=== PATIENT | female | born 1945 | race Caucasian/White ===

== ENCOUNTER 2021-04-08 12:34 | Outpatient (CLI) | payer MEDICARE, OTHER, SELFPAY ==
--- NOTE | 2021-04-08 | XR_ITS ---
WS: [id number] DEXA (DUAL ENERGY X-RAY ABSORPTIOMETRY) Bone mineral density was performed using a [employer] machine. HISTORY: ROUTINE POSTMENOPAUSAL SCREEN COMPARISON: 02/10/2019 Lumbar spine BMD (L1-L4): 1.322 g/cm2 T score: 1.2 Z score: 1.8 Total hip BMD: Left: 1.014 g/cm2. T score: 0.1 Z score: 1.1 Right: 0.943 g/cm2. T score: -0.5 Z score: 0.5 10 year probability of a major osteoporotic fracture is 16%. Compared to the prior study from 02/10/2019. Lumbar spine bone mineral density has increased by 0.2%. Bilateral hips bone mineral density has decreased by 2.4%. XR/XR DEXA axial skeleton* [id number] IMPRESSION: Normal bone mineral density based upon the WHO classification for females. Sign ificant decrease in bone mineral density within the hips since the prior study.
--- NOTE | 2021-04-08 13:01 | MM_ITS ---
WS: [id number] BILATERAL DIGITAL SCREENING MAMMOGRAPHY WITH CAD CLINICAL INFORMATION: SCREENING HISTORY: Screening mammogram. No current complaints. COMPARISON: TECHNIQUE: Bilateral CC and MLO views. FINDINGS: Scattered fibroglandular densities bilaterally. Punctate and lucent centered calcifications. No suspi cious focal mass, asymmetry, calcifications, or architectural distortion. No evidence of malignancy. MM/[place] [id number] IMPRESSION: BI-RADS: 2-Benign FOLLOW UP: 1 Year Follow-up Recommend return to annual screening mammography.
== END 2021-04-08 12:35 | disposition home or self-care (01) ==
LOC: RADSHAW 12:40
PROVIDERS: PCP Family Medicine; Visit Provider Family Medicine
DX: Z12.31 Encounter for screening mammogram for malignant neoplasm of breast (principal); Z78.0 Asymptomatic menopausal state
CPT/HCPCS: 77067; 77080

== ENCOUNTER 2021-08-28 08:57 | Observation (INO) | payer MEDICARE, OTHER, SELFPAY ==
[2021-08-28] VITALS (9 sets, daily range): BP systolic 114–187; BP diastolic 64–117; PULSE 71–89; RESP 14–22; TEMP 36.7; O2SAT 94–98; BMI 43.2; BMI 41.5
--- NOTE | 2021-08-28 09:14 | XRR_ITS ---
PROCEDURE INFORMATION: Exam: XR Chest Exam date and time: 08/28/2021 9:14 AM Age: 75 years old Clinical indication: Pain; Chest pressure; Additional info: Chest pain TECHNIQUE: Imaging protocol: XR of the chest. Views: 1 view. COMPARISON: CR Chest 2 views* [id number] 07/05/2017 10:56 AM FINDINGS: Lungs: Unremarkable. No consolidation. Pleural spaces: Unremarkable. No pleural effusion. No pneumothorax. Heart/Mediastinum: Unremarkable. No cardiomegaly. Bones/joints: A suture anchor is present in the right humeral head. Degenerative changes are present in both shoulder joints. XR/XR chest 1V portable [id number] IMPRESSION: No significant cardiopulmonary abnormality. Radiation Dose CTDIVOL = (mGy): DLP = (mGy-cm)
--- NOTE | 2021-08-28 09:15 | ECG_ITS ---
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 Measurements Intervals [place] Rate: 87 P: 52 [place]: 159 QRS: -24 QRSD: 82 T: 60 QT: 343 QTc: 414 Interpretive Statements SINUS RHYTHM BORDERLINE LEFT AXIS DEVIATION [QRS AXIS < -20] ST DEVIATION AND MODERATE T-WAVE ABNORMALITY, CONSIDER ANTERIOR ISCHEMIA [-0.1+ mV T-WAVE IN V3/V4] Compared to ECG 11/13/2016 13:20:23 No significant changes Electronically Signed On 08-28-2021 18:14:31 CDT by Zita Rahman M.D. [email or web address].[email or web address]/store/NU/[id number] f
[2021-08-28 09:54] LABS: Basophils # 0.1 10^3/uL (0.0-0.1); Basophils % 1.1 %; Eosinophils # 0.2 10^3/uL (0.0-0.8); Eosinophils % 4.2 %; Hematocrit 39.6 % (37.0-47.0); Hemoglobin 12.6 g/dL (11.5-15.3); Lymphocytes # 1.4 10^3/uL (0.8-4.8); Lymphocytes % 28.4 %; Mean Corpuscular HGB Conc 31.8 g/dL (30.0-36.0); Mean Corpuscular Hemoglobin 30.9 pg (28.0-34.0); Mean Corpuscular Volume 97.1 fl (81-99); Mean Platelet Volume 10.6 fL (7.4-10.4); Monocytes # 0.5 10^3/uL (0.2-0.9); Monocytes % 10.5 %; Neutrophils # 2.63 10^3/uL (1.8-7.7); Neutrophils % 55.2 %; Nucleated Red Blood Cells % 0 %; Platelet Count 259 10^3/cmm (130-400); Red Blood Count 4.08 10^6/uL (4.1-5.3); Red Cell Distribution Width 12.4 % (12.1-15.1); White Blood Count 4.8 10^3/uL (4.0-10.0)
[2021-08-28 09:55] LABS: Add Urine Microscopic? NO; Charge for UA Resulting for Rev
[2021-08-28 10:03] LABS: Bilirubin Urine Neg (Negative); Blood Urine Neg (Negative); Glucose Urine UA Norm (Normal); Ketones Urine Negative (Negative); Leukocyte Esterase Urine Negative (Negative); Nitrate Urine Negative (Negative); Protein Urine Neg (Negative); Specific Gravity, Urine 1.005 (1.005-1.030); Sulfosalicylic Acid Urine Negative (Negative); Urine Appearance Clear (CLEAR); Urine Color Straw (Yellow); Urobilinogen Urine Norm (Negative); pH Urine 8 (5-7)
[2021-08-28 10:07] LABS: INR 0.91 (0.8-1.2)
[2021-08-28 10:21] LABS: Troponin(5th) Baseline 11 ng/L (0-10)
[2021-08-28 10:26] LABS: Alanine Aminotransferase 8 U/L (0-33); Albumin Level 3.9 g/dL (3.5-5.2); Alkaline Phosphatase 101 IU/L (35-105); Aspartate Amino Transferase 16 U/L (0-32); Blood Urea Nitrogen 8 mg/dL (8-23); Calcium 9.3 mg/dL (8.5-10.5); Carbon Dioxide 26 mmol/L (22-29); Chloride 105 mmol/L (98-107); Globulin 2.7 g/dL (1.3-4.6); Glucose 101 mg/dL (65-115); Magnesium 1.7 mg/dL (1.7-2.3); NT Pro B Type Natriuretic Pept 32 pg/mL (0-450); Osmolality Calculated 292 mOsm/kg (285-295); Sodium 142 mmol/L (136-145); Total Bilirubin 0.3 mg/dL (0.15-1.2); Total Protein 6.6 g/dL (6.6-8.7)
--- NOTE | 2021-08-28 11:15 | ECG_ITS ---
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 Measurements Intervals [place] Rate: 83 P: 152 [place]: 154 QRS: -27 QRSD: 79 T: 162 QT: 360 QTc: 424 Interpretive Statements ECTOPIC ATRIAL RHYTHM BORDERLINE LEFT AXIS DEVIATION [QRS AXIS < -20] ST DEVIATION AND MODERATE T-WAVE ABNORMALITY, CONSIDER ANTERIOR ISCHEMIA [-0.1+ mV T-WAVE IN V3/V4] Compared to ECG 08/28/2021 09:14:36 Ectopic atrial rhythm now present Sinus rhythm no longer present T-wave abnormality still present Possible ischemia still present Electronically Signed On 08-28-2021 18:40:17 CDT by Zita Rahman M.D. [id number]
[2021-08-28] MEDS: aspirin 81 mg Chew Tablet 324 MG PO (11:26)
[2021-08-28] MEDS: orphenadrine 30 mg/mL Inj 2 mL 60 MG IVP (11:26)
--- NOTE | 2021-08-28 11:50 | W.ED.CHESTPA ---
HPI - Chest Pain General: Chief Complaint: Chest Pain Stated Complaint: LEFT SHOULDER PAIN Time Seen by Provider: 08/28/21 09:03 Source: patient Mode of arrival: EMS History of Present Illness: HPI narrative: 75-year-old female complaining of left posterior shoulder and scapular pain last night, tingling radiating down her left arm. This morning she woke up and noticed that she was sweaty and nauseous, her blood pressure was elevated She had taken Tylenol last night for the symptoms without much relief. She has history of bilateral shoulder arthritis. Denies any known history of coronary artery disease. Pain is worse with palpation, movement. No shortness of breath or palpitations. MD complaint: chest pain Associated symptoms: Reports diaphoresis and nausea; Deny abdominal pain, fever(s) or vomiting Review of Systems Const: Reports: diaphoresis; Denies: fever(s), chills, body aches, change in appetite, change in weight, fatigue or night sweats Eyes: Denies: change in vision or blurry vision Card: Reports: lightheadedness; Denies: chest pain, irregular heart rhythm, edema, dyspnea on exertion, orthopnea or leg pain with exertion Resp: Reports: pain on inspiration GI: Reports: nausea and heartburn; Denies: abdominal pain or vomiting : Denies: flank pain, difficulty voiding or dysuria Musc: Reports: neck pain, back pain and joint pain Skin/Breast: Denies: rash, pruritus or erythema Neuro: Reports: other (Occasional radiating tingling down left arm); Denies: headache(s), frequent falls, dizziness, behavioral changes or Slurred speech present Lui/Lymph: Denies: easy bruising or easy bleeding All/Imm: Denies: urticaria or throat swelling PFSH ED PFSH: Medical History History of asthma History of benign essential tremor History of hyperlipidemia History of hypertension History of restless legs syndrome Surgical History History of appendectomy History of bilateral knee replacement History of cholecystectomy History of hysterectomy Family History Mother CAD (coronary artery disease) Father Lung disease Sister Congenital heart disease Sister Breast cancer Physical Exam Const: COMMON NORMALS: no acute distress EXAM LIMITATIONS: altered mental status GENERAL APPEARANCE: cooperative and anxious; not in distress NUTRITIONAL APPEARANCE: obese; not cachectic ORIENTATION/CONSCIOUSNESS: Yes awake, Yes oriented to person, Yes oriented to place and Yes oriented to time HENMT: COMMON NORMALS: normocephalic and atraumatic HEAD & SCALP: normocephalic and atraumatic Eye: COMMON NORMALS: Equal, round and reactive pupils present, EOMs intact bilaterally, conjunctivae normal and no scleral icterus CONJUNCTIVA: Yes conjunctivae normal PUPIL: Yes Equal, round and reactive pupils present Neck/C-Spine: COMMON NORMALS: no JVD Chest: COMMONS NORMALS: normal inspection of the chest CHEST: No abnormal inspection of the chest, No crepitus and Yes tenderness pectoral muscle and costal cartilage Resp: COMMON NORMALS: normal respiratory effort, No retractions and No use of accessory muscles Cardio: COMMON NORMALS: no JVD, regular rate, regular rhythm, S1 normal heart sound present and S2 normal heart sound present RATE: regular rate RHYTHM: regular rhythm HEART SOUNDS: S1 normal heart sound present and S2 normal heart sound present Extremity: LEFT UPPER EXTREMITY: Yes shoulder joint (Decreased range of motion, tenderness palpation) Left shoulder joint: Yes palpation (Muscle spasms) Neuro: SENSORIUM/ORIENTATION: Yes oriented to person, Yes oriented to place and Yes oriented to time Course Vital Signs: Vital signs: Vital Signs Temperature 98.0 F 08/28/21 08:58 Pulse Rate 79 08/28/21 18:09 Respiratory Rate 18 08/28/21 18:09 Blood Pressure 155/79 08/28/21 17:06 Pulse Oximetry 95 08/28/21 18:09 MDM - Chest Pain MDM Narrative: Medical decision making narrative: 75-year-old female with left-sided chest wall and scapular pain since yesterday. No acute ischemic or dynamic changes on EKG. Serial troponin levels stable. CTA negative for acute pulmonary embolism or other vascular emergency. No pleural effusion. Pain was difficult to control, she had a little bit of an adverse reaction to narcotic pain medication; became tremulous, anxious and tearful. She does live alone and is worried about that. Clinical exam and history are most consistent with musculoskeletal etiology, specifically cervical radiculopathy. She was given a dose of Decadron and Toradol in addition to other analgesics. I discussed the case with the on-call hospitalist, who will come see the patient in the ED. Think is best that she be admitted for observation to make sure she is feeling better before we discharge her home. Differential Diagnosis: Cardiac arrest differential diagnosis: Likely acute massive pulmonary embolism and acute myocardial infarction Medical Records: Attestation: I reviewed the patient's medical records. Lab Data: Attestation: I reviewed the patient's lab results. Labs: Lab Results 08/28/21 08/28/21 08/28/21 09:00 09:00 09:09 WBC RBC Hgb Hct MCV MCH MCHC RDW Plt Count MPV Neut % (Auto) Lymph % (Auto) [place] % (Auto) Eos % (Auto) Baso % (Auto) Neut # (Auto) Lymph # (Auto) [place] # (Auto) Eos # (Auto) Baso # (Auto) Nucleated RBC % (a uto) Nucleated RBCs # PT INR Sodium 142 mmol/L mmol/L (136-145) Potassium 4.0 mmol/L mmol/L (3.5-5.1) Chloride 105 mmol/L mmol/L (98-107) Carbon Dioxide 26 mmol/L mmol/L (22-29) Anion Gap 15.0 (5-19) BUN 8 mg/dL mg/dL (8-23) Creatinine 0.4 mg/dL L mg/dL (0.5-0.9) GFR Calculation Not Reportable Glucose 101 mg/dL mg/dL (65-115) Calculated Osmolal ity 292 mOsm/kg mOsm/ kg (285-295) Calcium 9.3 mg/dL mg/dL (8.5-10.5) Magnesium 1.7 mg/dL mg/dL (1.7-2.3) Total Bilirubin 0.3 mg/dL mg/dL (0.15-1.2) AST 16 U/L U/L (0-32) ALT 8 U/L U/L (0-33) Alkaline Phosphata se 101 IU/L IU/L (35-105) Troponin T Baselin e 11 ng/L H ng/L (0-10) Troponin T 120 Min bel[place]ski Delta Troponin T Troponin T Hi Sens 6Hr Troponin T Hi Sens 6Hr Delta NT-Pro-B Natriuret Pep 32 pg/mL pg/mL (0-450) Total Protein 6.6 g/dL g/dL (6.6-8.7) Albumin 3.9 g/dL g/dL (3.5-5.2) Globulin 2.7 g/dL g/dL (1.3-4.6) Triglycerides Cholesterol LDL Cholesterol, C alc HDL Cholesterol LDL/HDL Ratio Cholesterol/HDL Ra olvin TSH Urine Color Straw (Yellow) Urine Appearance Clear (CLEAR) Urine pH 8 H (5-7) Ur Specific Gravit y 1.005 (1.005-1.030) Urine Protein Neg (Negative) Urine Glucose (UA) Norm (Normal) Urine Ketones Negative (Negative) Urine Blood Neg (Negative) Urine Nitrate Negative (Negative) Urine Bilirubin Neg (Negative) Prot Sulfosalicyli c Acd Negative (Negative) Urine Urobilinogen Norm mg/dL mg/dL (Negative) Ur Leukocyte Jaki ase Negative (Negative) 08/28/21 08/28/21 08/28/21 09:18 09:18 11:13 WBC 4.8 10^3/uL 10^3/ uL (4.0-10.0) RBC 4.08 10^6/uL L 10 ^6/uL (4.1-5.3) Hgb 12.6 g/dL g/dL (11.5-15.3) Hct 39.6 % % (37.0-47.0) MCV 97.1 fl fl (81-99) MCH 30.9 pg pg (28.0-34.0) MCHC 31.8 g/dL g/dL (30.0-36.0) RDW 12.4 % % (12.1-15.1) Plt Count 259 10^3/cmm 10^3 /cmm (130-400) MPV 10.6 fL H fL (7.4-10.4) Neut % (Auto) 55.2 % % Lymph % (Auto) 28.4 % % [place] % (Auto) 10.5 % % Eos % (Auto) 4.2 % % Baso % (Auto) 1.1 % % Neut # (Auto) 2.63 10^3/uL 10^3 /uL (1.8-7.7) Lymph # (Auto) 1.4 10^3/uL 10^3/ uL (0.8-4.8) [place] # (Auto) 0.5 10^3/uL 10^3/ uL (0.2-0.9) Eos # (Auto) 0.2 10^3/uL 10^3/ uL (0.0-0.8) Baso # (Auto) 0.1 10^3/uL 10^3/ uL (0.0-0.1) Nucleated RBC % (a uto) 0 % % Nucleated RBCs # 0.0 /100WBC /100W BC PT 12.60 SECONDS SEC ONDS (12.1-14.9) INR 0.91 (0.8-1.2) Sodium Potassium Chloride Carbon Dioxide Anion Gap BUN Creatinine GFR Calculation Glucose Calculated Osmolal ity Calcium Magnesium Total Bilirubin AST ALT Alkaline Phosphata se Troponin T Baselin e Troponin T 120 Min [place] 11.53 ng/L H ng/L (0-10) Delta Troponin T 0.53 ABS# ABS# (0-10) Troponin T Hi Sens 6Hr Troponin T Hi Sens 6Hr Delta NT-Pro-B Natriuret Pep Total Protein Albumin Globulin Triglycerides Cholesterol LDL Cholesterol, C alc HDL Cholesterol LDL/HDL Ratio Cholesterol/HDL Ra olvin TSH Urine Color Urine Appearance Urine pH Ur Specific Gravit y Urine Protein Urine Glucose (UA) Urine Ketones Urine Blood Urine Nitrate Urine Bilirubin Prot Sulfosalicyli c Acd Urine Urobilinogen Ur Leukocyte Jaki ase 08/28/21 08/28/21 08/28/21 15:19 15:19 15:19 WBC RBC Hgb Hct MCV MCH MCHC RDW Plt Count MPV Neut % (Auto) Lymph % (Auto) [place] % (Auto) Eos % (Auto) Baso % (Auto) Neut # (Auto) Lymph # (Auto) [place] # (Auto) Eos # (Auto) Baso # (Auto) Nucleated RBC % (a uto) Nucleated RBCs # PT INR Sodium Potassium Chloride Carbon Dioxide Anion Gap BUN Creatinine GFR Calculation Glucose Calculated Osmolal ity Calcium Magnesium 1.5 mg/dL L mg/dL (1.7-2.3) Total Bilirubin AST ALT Alkaline Phosphata se Troponin T Baselin e Troponin T 120 Min [place] Delta Troponin T Troponin T Hi Sens 6Hr 14.60 ng/L H ng/L (0-10) Troponin T Hi Sens 6Hr Delta 3.60 ng/L ng/L (0-12) NT-Pro-B Natriuret Pep 38 pg/mL pg/mL (0-450) Total Protein Albumin Globulin Triglycerides 84 mg/dL mg/dL (0-150) Cholesterol 156 mg/dL mg/dL (0-200) LDL Cholesterol, C alc 97 mg/dL mg/dL (50-129) HDL Cholesterol 42 mg/dL L mg/dL (60-100) LDL/HDL Ratio 2.31 RATIO RATIO (0.00-3.22) Cholesterol/HDL Ra olvin 3.71 mg/dL mg/dL (0.0-4.40) TSH 2.23 uIU/mL uIU/m L (0.27-4.20) Urine Color Urine Appearance Urine pH Ur Specific Gravit y Urine Protein Urine Glucose (UA) Urine Ketones Urine Blood Urine Nitrate Urine Bilirubin Prot Sulfosalicyli c Acd Urine Urobilinogen Ur Leukocyte Jaki ase Discharge Plan Discharge Patient Disposition: Home Clinical Impression: Atypical chest pain, Muscle spasm of left shoulder area, Cervical radiculitis Subscapular pain Qualifiers: Laterality: left Qualified Code(s): M25.512 - Pain in left shoulder Condition: Stable Discharge Diet: Advance as tolerated Discharge Activity: Increase activity as tolerated Coding Level of Care Code ED Patient Services Assistant for Cirilo Fwd Exam Comprehensive
[2021-08-28 11:58] LABS: Troponin 5 2HR 11.53 ng/L (0-10); Troponin 5 2HR Delta 0.53 ABS# (0-10)
--- NOTE | 2021-08-28 12:26 | CTR_ITS ---
PROCEDURE INFORMATION: Exam: CTA Chest With Contrast Exam date and time: 08/28/2021 12:26 PM Age: 75 years old Clinical indication: Pain; Chest pressure; Additional info: Chest pain, pleuritic, dyspnea TECHNIQUE: Imaging protocol: Computed tomographic angiography of the chest with contrast. 3D rendering (Not supervised by radiologist): MIP and/or 3D reconstructed images were created by the technologist. Radiation optimization: All CT scans at this facility use at least one of these dose optimization techniques: automated exposure control; mA and/or kV adjustment per patient size (includes targeted exams where dose is matched to clinical indication); or iterative reconstruction. Contrast material: OMNI 350; Contrast volume: 95 ml; Contrast route: INTRAVENOUS (IV); COMPARISON: CR (CHEST, ) 08/28/2021 9:21 AM RADIATION DOSE METRICS: Total DLP (mGy-cm): 506.52 FINDINGS: Pulmonary arteries: Normal. No pulmonary emboli. Aorta: Unremarkable. No aortic aneurysm. No aortic dissection. Lungs: Small benign calcified granulomas are present in the lungs. No suspicious nodules or pulmonary infiltrates are seen. Pleural spaces: Unremarkable. No pneumothorax. No pleural effusion. Heart: Unremarkable. No cardiomegaly. No pericardial effusion. Lymph nodes: Small benign calcified lymph nodes are present in the mediastinum and pulmonary petra. Gallbladder and bile ducts: Cholecystectomy. Normal bile ducts. Bones/joints: Degenerative changes are present in the spine with scattered sclerosis and osteophytes. Soft tissues: Unremarkable. CT/CT angio chest PE protcl [id number] IMPRESSION: 1. No evidence of pulmonary embolus or aortic aneurysm/dissection. 2. Benign calcified granulomas disease. 3. No acute abnormality is seen in the chest. Radiation Dose CTDIVOL = (mGy): DLP = 506.52 (mGy-cm)
[2021-08-28] MEDS: iohexol 350 mg/mL 100 mL Btl IV (13:30)
[2021-08-28] MEDS: HYDROcodone-acetaminophen 7.5-325 mg Tablet 1 TAB PO (14:26)
[2021-08-28] MEDS: fentaNYL 50 mcg/mL INJ 2mL 100 MCG IVP (14:29)
[2021-08-28] MEDS: dexamethasone 10 mg/mL INJ 6 MG IVP (14:30)
[2021-08-28] MEDS: ketorolac 30 mg/mL INJ IVP (14:32)
--- NOTE | 2021-08-28 15:15 | ECG_ITS ---
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 Measurements Intervals [place] Rate: 84 P: 60 [place]: 155 QRS: -17 QRSD: 79 T: 78 QT: 361 QTc: 428 Interpretive Statements SINUS RHYTHM ST DEVIATION AND MODERATE T-WAVE ABNORMALITY, CONSIDER ANTEROLATERAL ISCHEMIA [-0.1+ mV T WAVE IN V3-V6] Compared to ECG 08/28/2021 09:57:57 Ectopic atrial rhythm no longer present T-wave abnormality still present Possible ischemia still present Electronically Signed On 08-28-2021 18:42:08 CDT by Zita Rahman M.D. [email or web address]/store/OM/[id number]
--- NOTE | 2021-08-28 15:52 | P.HP_ITS ---
Providers/Chief Complaint Primary Care Provider: Gillian Modi MD Chief Complaint: LEFT SHOULDER PAIN History of Present Illness Martina Miles is a 75 year old female with a past medical history of hypertension, hyperlipidemia, restless leg syndrome, benign essential tremor, who presents to [facility] due to chest pain and back pain. Patient tells me that yesterday evening, she started to develop back pain, just below the skin level of the scapula, which then progressed to anterior chest pain, sharp pain, lasting a few minutes, intermittent, associate with left arm heaviness, no nausea, no vomiting, but she did feel short of breath, no lightheadedness, no dizziness, the pain persisted throughout the night, it was difficult for her to fall asleep. This morning the pain severity increased, lasting longer, continue to have severe anterior chest pain, with back pain, left arm heaviness, that she is decided to come to the emergency room. She does report a history of chest pain in the past requiring cardiac evaluation including a negative stress test and negative angiogram in the last 10 years. Does report increase shortness of breath recently with increased bilateral extremity edema. In the emergency room she had a CT angiogram which was unremarkable for pulmonary embolism or aortic dissection, baseline troponin XI, 120-minute 11.53, delta 0.53, she has been given Toradol, [place], fentanyl, mus irma relaxers as the pain was thought to be musculoskeletal but continues to have anterior chest pain. Hospitalist team was called for continued chest pain and inpatient mission. Currently patient was examined, she continues to have some anterior chest pain, stabbing in nature, has received aspirin, has not received nitroglycerin, blood pressures 190s over 110, saturations in the high 90s, normal sinus rhythm, pulse 85, temp 98, O2 sats 97, EKG shows T wave inversions and ST depressions in the anterior leads. Review of Systems Const: Denies: fever(s), chills, fatigue or malaise Eyes: Denies: change in vision or blurry vision ENMT: Denies: nasal congestion Card: Reports: chest pain, edema, swelling of feet/ankles and dyspnea on exertion; Denies: palpitations, irregular heart rhythm, lightheadedness, syncope, pre- syncope or orthopnea Resp: Reports: dyspnea; Denies: productive cough, non-productive cough or wheezing GI: Denies: abdominal pain, nausea, vomiting, hematemesis, diarrhea, constipation, hematochezia or melena : Denies: flank pain, dysuria or urinary frequency Musc: Denies: neck pain or back pain Skin/Breast: Denies: rash Neuro: Denies: headache(s), dizziness or vertigo Endo: Denies: polyuria or polydipsia Medications/Allergies Home Medications Medication Instructions Recorded Confirmed Last Taken Type albuterol sulfate 2 puff INHALATION QID PRN 08/28/21 08/28/21 Unknown History amitriptyline 20 mg PO BEDTIME 08/28/21 08/28/21 08/27/21 History calcium 500 mg PO DAILY 08/28/21 08/28/21 08/27/21 History carbidopa-levodopa 1 tab PO BEDTIME 08/28/21 08/28/21 08/27/21 History gemfibrozil 600 mg PO BID 08/28/21 08/28/21 08/27/21 History hydrochlorothiazide 12.5 mg PO DAILY 08/28/21 08/28/21 08/27/21 History irbesartan 150 mg PO DAILY 08/28/21 08/28/21 08/27/21 History methocarbamol 500 mg PO Q8H PRN #14 tab 08/28/21 Unknown Rx omeprazole 40 mg PO DAILY 08/28/21 08/28/21 08/27/21 History prednisone 60 mg PO DAILY 3 Days #9 tab 08/28/21 Unknown Rx propranolol 120 mg PO BID 08/28/21 08/28/21 08/27/21 History Allergies Allergy/AdvReac Type Severity Reaction Status Date / Time morphine Allergy ALGY-Rash Verified 08/28/21 09:14 PFSH Acute PFSH: Medical History (Updated 08/28/21 @ 16:01 by Armen Cardoso MD) History of asthma History of benign essential tremor History of hyperlipidemia History of hypertension History of restless legs syndrome Surgical History (Updated 08/28/21 @ 16:00 by Armen Cardoso MD) History of appendectomy History of bilateral knee replacement History of cholecystectomy History of hysterectomy Family History (Updated 08/28/21 @ 16:00 by Armen Cardoso MD) Mother CAD (coronary artery disease) Father Lung disease Sister Congenital heart disease Sister Breast cancer Vitals/I&O/Wt Last Vital Signs Temp 98.0 F 08/28/21 08:58 Pulse 85 08/28/21 11:21 Resp 16 08/28/21 14:29 BP 186/97 08/28/21 11:21 Pulse Ox 97 08/28/21 11:21 Weight last 48 hrs Weight 117.934 kg Physical Exam Narrative: EXAM NARRATIVE: Bilateral upper extremity tremors Const: COMMON NORMALS: no acute distress and patient oriented x3 GENERAL APPEARANCE: cooperative and comfortable HENMT: COMMON NORMALS: normocephalic HEAD & SCALP: normocephalic Eye: COMMON NORMALS: Equal, round and reactive pupils present and EOMs intact bilaterally GENERAL EYE: appearance normal, both eyes and all related structures PUPIL: Yes Equal, round and reactive pupils present Neck/C-Spine: COMMON NORMALS: full ROM and no lymphadenopathy THYROID: Thyroid normal Lymph: LYMPHATIC: no lymphadenopathy noted Resp: COMMON NORMALS: normal respiratory effort, No retractions, No use of accessory muscles and clear to auscultation bilaterally AUSCULTATION: clear to auscultation bilaterally Cardio: COMMON NORMALS: no JVD, regular rate, regular rhythm, S1 normal heart sound present, S2 normal heart sound present, No gallops present (Cardio), No clicks present (Cardio) and No murmurs present (Cardio) RATE: regular rate RHYTHM: regular rhythm HEART SOUNDS: S1 normal heart sound present and S2 normal heart sound present GI: COMMON NORMALS: Normal to inspection, nondistended, normoactive bowel sounds present, Soft to palpation, non-tender and No hepatosplenomegaly present PALPATION: Yes Soft to palpation and Yes No hepatosplenomegaly present Extremity: COMMON NORMALS: normal to inspection, full ROM and no pedal edema Neuro: COMMON NORMALS: patient oriented x3, CN's II-XII intact bilaterally, mo ves all extremities and no focal motor deficits Psych: COMMON NORMALS: mental status grossly normal, Normal thought process present and cooperative THOUGHT PROCESS: Normal thought process present Data : 08/28/21 09:18 08/28/21 09:00 A&P Assessment and plan (1) Unstable angina: -Unstable angina -Continues to have chest pain -Plan: -Admit to cardiac stepdown unit -We will start on nitro drip -Morphine for pain -Monitor EKGs, serial troponins, serial EKGs, telemetry monitoring, order for chest pain -Aspirin received in the emergency room, statin, Coreg -Therapeutic Lovenox -Magnesium, TSH, BNP -Cardiac echocardiogram ordered -N.p.o. midnight, cardiac stress test -DNR/DNI -Lovenox for DVT prophylaxis -Cardiology consulted Hypertensive emergency, blood pressures 190s over 110, having chest pain, will start her on a nitro drip, goal is to reduce mean arterial pressure by 10 to 20% in the first hour, then gradually over the next 23 hours, final pressures reduced by 25% compared with baseline Hypertension as above Hyperlipidemia, statin Restless leg syndrome Benign essential tremor Status: Acute Attestations Medical Necessity Statement*: Patient requires hospitalization, outpatient with observation, for unstable angina Coding Level of Care Code Acute Public Health Representative for Cirilo Chen Diagnoses Unstable angina I20.0
[2021-08-28 16:44] LABS: Magnesium 1.5 mg/dL (1.7-2.3); NT Pro B Type Natriuretic Pept 38 pg/mL (0-450); Thyroid Stimulating Hormone 2.23 uIU/mL (0.27-4.20)
--- NOTE | 2021-08-28 17:06 | USCV_ITS ---
Martina Miles Age: 75 Gender: F : 1945 Exam Date: 08/28/2021 20:59 Ordering Phys: Armen Cardoso MD Technologist: Jessika Shaw Exam Location: [facility] [place] Indication: Chest pain BP: 136 / 78 HR: 85 Rhythm: Sinus Technical Quality: Technically difficult study MEASUREMENTS (Male / Female) Normal Values 2D ECHO LV Diastolic Diameter PLAX 4.1 cm 4.2 - 5.9 / 3.9 - 5.3 cm LV Systolic Diameter PLAX 2.7 cm IVS Diastolic Thickness 1.7 cm 0.6 - 1.0 / 0.6 - 0.9 cm IVS Systolic Thickness 1.7 cm LVPW Diastolic Thickness 1.1 cm 0.6 - 1.0 / 0.6 - 0.9 cm LVPW Systolic Thickness 1.6 cm RV Chamber Size 2.8 cm LVOT Diameter 2.0 cm LV Ejection Fraction 2D Teich 64.0 % LV Ejection Fraction MOD 2C 56.6 % LV Ejection Fraction 2C AL 56.7 % LA Diameter 2.8 cm LA Width 3.4 cm LA Height 4.6 cm RA Width 3.2 cm RA Height 4.3 cm Aorta at Sinotubular Diameter 2.7 cm DOPPLER AV Peak Velocity 184.0 cm/s LVOT Peak Velocity 138.0 cm/s AV Area Cont Eq vti 2.9 cm squared AV Area Cont Eq pk 2.4 cm squared MV Area PHT 5.0 cm squared Mitral E to A Ratio 0.6 MV E' Velocity 37.0 cm/s Mitral E to MV E' Ratio 9.5 Mitral E to LV E' Lateral Ratio 11.8 Mitral E to LV E' Septal Ratio 8.0 TR Peak Velocity 236.0 cm/s TR Peak Gradient 22.3 mmHg TV Peak E Velocity 57.0 cm/s Right Atrial Pressure 3.0 mmHg Pulmonary Artery Systolic Pressu 25.3 mmHg RV Acceleration Time 0.1 s RV Ejection Time 0.4 s RV AcT/ET 0.4 FINDINGS Left Ventricle Normal left ventricular size and systolic function, EF 61 %. No regional wall motion abnormalities. Mild left ventricular hypertrophy. Grade I/IV diastolic dysfunction (abnormal relaxation filling pattern), normal to mildly elevated filling pressures. Right Ventricle The right ventricle is normal in size and function. Right Atrium The right atrium is normal in size. Left Atrium The left atrium is normal in size. Mitral Valve Gross abnormalities noted . Aortic Valve Thickened aortic valve. Tricuspid Valve Trace tricuspid valve regurgitation. Pulmonic Valve no gross abnormalities noted Pericardium Normal pericardium without effusion. Aorta Normal aortic annulus size. CONCLUSIONS Normal left ventricular size and systolic function, EF 61 %. No regional wall motion abnormalities. Mild left ventricular hypertrophy. Grade I/IV diastolic dysfunction (abnormal relaxation filling pattern), normal to mildly elevated filling pressures. Features of aortic valve sclerosis. Trace tricuspid valve regurgitation. There is no pericardial effusion. There are no intracardiac masses. No previous study is available for comparison. Dr Zita Rahman MD [facility] (Electronically Signed) Final Date: 29 August 2021 07:04 S
--- NOTE | 2021-08-28 17:06 | ECG_ITS ---
[facility] Test Date: 2021-08-29 Pat Name: Martina Miles Department: Room: 107 Gender: Female Clinical Fellow: : 1945 Requested By: Armen Cardoso Order Number: [id number] MD: VERITO THORNE Interpretive Statements NAME OF STUDY: LEXISCAN SESTAMIBI STRESS TEST INDICATION: Chest Pain, NOTE: Please note that this is the electrocardiogram portion of the Lexiscan/Sestamibi stress test. The perfusion scan will be documented separately. DATA: Baseline heart rate was 72 beats per minute. Baseline blood pressure was 129/61 millimeters of mercury. Target heart rate was 143. Maximum heart rate achieved was 100. which was 69 % of the predicted target heart rate. Maximum blood pressure was 138/68 millimeters of mercury. The reason for ending the test was ending of the protocol. The patient did not experience any symptoms. ELECTROCARDIOGRAM: BASELINE: Sinus rhythm. Normal axis. Anterolateral T wave inversion, cannot rule out ischemia EXERCISE: After Lexiscan injection, mild inferolateral ST-T depression noted. No arrhythmia noted. CONCLUSION: Please note due to baseline abnormality of the EKG specificity and sensitivity of the EKG portion of LexiScan MIBI stress test will be low 1. EKG is equivocal ischemia 2. Lexiscan injection unremarkable. 3. Perfusion scan will be documented separately. Electronically Signed On 09-01-2021 21:35:10 CDT by VERITO THORNE [id number]
[2021-08-28] MEDS: nitroglycerin 0.4 mg sublingual Tablet SUBLINGUAL (17:26)
[2021-08-28 18:09] LABS: Chol HDL Ratio 3.71 mg/dL (0.0-4.40); Cholesterol 156 mg/dL (0-200); HDL Cholesterol 42 mg/dL (60-100); LDL Cholesterol Calculated 97 mg/dL (50-129); LDL HDL Ratio 2.31 RATIO (0.00-3.22); Triglycerides 84 mg/dL (0-150)
[2021-08-28] MEDS: pantoprazole 40 mg SDV IVP (18:21)
[2021-08-28] MEDS: carvedilol 3.125 mg Tablet PO (18:21)
[2021-08-28] MEDS: enoxaparin 120 mg/0.8 mL Syringe SUBCUT (18:21)
--- NOTE | 2021-08-28 18:52 | PC.NURSE ---
Pt arrived to room 107 from ED at approximately 1645. Pt c/o pain in back 2/10, resp even and non-labored no distress noted. Pt A&O x4, IV patent no pain redness or swelling noted. Pt lying in bed resting, hob 45 degree, Call light in reach. No needs voiced.
--- NOTE | 2021-08-28 19:13 | PM.CONSULT ---
Providers/Reason For Consult Consulting Physician/Specialty*: Daniel Rahman MD/cardiology Reason for Consult*: Patient with chest pain/abnormal EKG Attending Physician: Armen Cardoso MD Primary Care Provider: Gillian Modi MD History of Present Illness History of Present Illness Martina Miles is a 75 year old female with a history of hypertension and dyslipidemia, apparently has been in her baseline state of health up until last evening when she started having pain in the upper back radiating to the shoulders, left arm and to the left side of the chest. The intensity was mild to begin with. Gradually the pain got worse. It was up to 7/10 in intensity. She had associated shortness of breath, some nausea and sweating. Because of the worsening of the symptoms, she decided to come to the hospital. She did not have any associated fever, chills or cough. No vomiting. No abdominal pain or dysuria. No other associated symptoms or radiation of pain. She has no previous history for coronary artery disease, myocardial infarction or congestive heart failure. Her blood pressure was found to be elevated at home. In the ambulance, she was given IV fentanyl. She was given tramadol in the emergency room. Apparently the pain did not get much better. She was given sublingual nitroglycerin by the hospitalist physician which apparently started relieving the pain. Currently the pain is 1/10 in intensity. She has no previous history for any CVA, peripheral artery disease, kidney disease, liver disease or bleeding disorders. She had a CT of the chest which revealed no evidence of aortic dissection or pulmonary embolism. Her EKG showed diffuse nonspecific T wave changes. Review of Systems Narrative: CONSTITUTIONAL: No fever or chills. EYES: No blurring of vision or other visual disturbances lately. ENT: No hoarseness of voice, auditory disturbances or sore throat. CARDIOVASCULAR: As mentioned above. RESPIRATORY: No significant cough. GASTROINTESTINAL: No hematemesis or melena. GENITOURINARY: No dysuria or hematuria. INTEGUMENTARY: No skin rashes or history of skin cancer. NEURO: Patient has a history of tremor bilaterally in the upper extremities. Also is known to have restless leg syndrome. PSYCHIATRIC: No history of psychosis or major depression. HEMATOLOGIC: No bleeding disorders or significant anemia. ENDOCRINE: No history of polyuria or polydipsia. MUSCULOSKELETAL: No recent joint pain or swelling. ALLERGY/IMMUNOLOGY: As mentioned above. Meds/Allergies Home Medications and Allergies Home Medications Medication Instructions Recorded Confirmed Last Taken Type albuterol sulfate 2 puff INHALATION QID PRN 08/28/21 08/28/21 Unknown History amitriptyline 20 mg PO BEDTIME 08/28/21 08/28/21 08/27/21 History calcium 500 mg PO DAILY 08/28/21 08/28/21 08/27/21 History carbidopa-levodopa 1 tab PO BEDTIME 08/28/21 08/28/21 08/27/21 History gemfibrozil 600 mg PO BID 08/28/21 08/28/21 08/27/21 History hydrochlorothiazide 12.5 mg PO DAILY 08/28/21 08/28/21 08/27/21 History irbesartan 150 mg PO DAILY 08/28/21 08/28/21 08/27/21 History methocarbamol 500 mg PO Q8H PRN #14 tab 08/28/21 Unknown Rx omeprazole 40 mg PO DAILY 08/28/21 08/28/21 08/27/21 History prednisone 60 mg PO DAILY 3 Days #9 tab 08/28/21 Unknown Rx propranolol 120 mg PO BID 08/28/21 08/28/21 08/27/21 History Allergies Allergy/AdvReac Type Severity Reaction Status Date / Time morphine Allergy ALGY-Rash Verified 08/28/21 09:14 Current Medications Current Medications Generic Name Dose Route Start Last Admin Trade Name Freq PRN Reason Stop Dose Admin Carvedilol 3.125 mg 08/28/21 18:00 08/28/21 18:21 Carvedilol 3.125 Mg Tablet PO 3.125 mg BID BETH Administration Enoxaparin Sodium 120 mg 08/28/21 17:30 08/28/21 18:21 Enoxaparin 120 Mg/0.8 Ml Syringe SUBCUT 120 mg Q12H BETH Administration Pantoprazole Sodium 40 mg 08/28/21 17:30 08/28/21 18:21 Pantoprazole 40 Mg Sdv IVP 40 mg Q12H BETH Administration PFSH Acute PFSH: Medical History (Updated 08/28/21 @ 20:06 by Zita Rahman MD) History of asthma History of benign essential tremor History of hyperlipidemia History of hypertension History of restless legs syndrome Surgical History History of appendectomy History of bilateral knee replacement History of cholecystectomy History of hysterectomy Family History Mother CAD (coronary artery disease) Father Lung disease Sister Congenital heart disease Sister Breast cancer Vitals/I&O/Wt Last Vital Signs Temp 98.0 F 08/28/21 08:58 Pulse 79 08/28/21 18:09 Resp 18 08/28/21 18:09 BP 155/79 08/28/21 17:06 Pulse Ox 95 08/28/21 18:09 Weight last 48 hrs Weight 250 lb Weight 260 lb Physical Exam Narrative: EXAM NARRATIVE: GENERAL: The patient is alert and oriented times three. Not in any acute distress. HEENT: No significant pallor, icterus or lymphadenopathy. The pupils are reactant to light. Oral cavity: There are no mucous membrane lesions. Funduscopic examination: The fundus is not visualized. NECK: Trachea appears to be central. No masses noted. No JVD or thyromegaly appreciated. No carotid bruit. RESPIRATORY: Chest is symmetrical. No intercostals muscle retraction or any accessory muscle activation. There is no chest wall tenderness. Breath sounds are heard bilaterally. No rales or rhonchi heard. No evidence of any consolidation. BREASTS: Deferred. HEART: The PMI could not be palpated. No palpable precordial events. S1 and S2 are normal. No S3 or S4 heard. No pericardial rub or any click heard. ABDOMEN: No vessel pulsations or distention. No tenderness. No organomegaly appreciated. No abdominal bruit. Bowel sounds are normally heard. : Deferred. RECTAL: Deferred. LYMPHATIC: No lymphadenopathy noted in the neck or groin. EXTREMITIES: No edema or cyanosis. No clubbing. The pulses are symmetrical bilaterally. The radial, femoral, dorsalis pedis and the posterior tibial pulses are palpated and found to be in good volume and amplitude. Patient has a area of deep scarring on the lateral aspect of the left leg MUSCULOSKELETAL: No acute joint deformities or swelling SKIN: There are no significant scars or skin rash noted. NEUROPSYCHIATRIC: The patient is alert and oriented x3. Appears to be in a good mood. The higher functions are grossly within normal limits. No tremors or rigidity noted. Data Labs: Other Labs: Laboratory Last Values WBC 4.8 10^3/uL (4.0- 10.0) 08/28/21 09:18 RBC 4.08 10^6/uL (4.1 -5.3) L 08/28/21 09:18 Hgb 12.6 g/dL (11.5-1 5.3) 08/28/21 09:18 Hct 39.6 % (37.0-47.0 ) 08/28/21 09:18 MCV 97.1 fl (81-99) 08/28/21 09:18 MCH 30.9 pg (28.0-34. 0) 08/28/21 09:18 MCHC 31.8 g/dL (30.0-3 6.0) 08/28/21 09:18 RDW 12.4 % (12.1-15.1 ) 08/28/21 09:18 Plt Count 259 10^3/cmm (130 -400) 08/28/21 09:18 MPV 10.6 fL (7.4-10.4 ) H 08/28/21 09:18 Neut % (Auto) 55.2 % 08/28/21 09:18 Lymph % (Auto) 28.4 % 08/28/21 09:18 [place] % (Auto) 10.5 % 08/28/21 09:18 Eos % (Auto) 4.2 % 08/28/21 09:18 Baso % (Auto) 1.1 % 08/28/21 09:18 Neut # (Auto) 2.63 10^3/uL (1.8 -7.7) 08/28/21 09:18 Lymph # (Auto) 1.4 10^3/uL (0.8- 4.8) 08/28/21 09:18 [place] # (Auto) 0.5 10^3/uL (0.2- 0.9) 08/28/21 09:18 Eos # (Auto) 0.2 10^3/uL (0.0- 0.8) 08/28/21 09:18 Baso # (Auto) 0.1 10^3/uL (0.0- 0.1) 08/28/21 09:18 Nucleated RBC % (a uto) 0 % 08/28/21 09:18 Nucleated RBCs # 0.0 /100WBC 08/28/21 09:18 PT 12.60 SECONDS (12 .1-14.9) 08/28/21 09:18 INR 0.91 (0.8-1.2) 08/28/21 09:18 Sodium 142 mmol/L (136-1 45) 08/28/21 09:00 Potassium 4.0 mmol/L (3.5-5 .1) 08/28/21 09:00 Chloride 105 mmol/L (98-10 7) 08/28/21 09:00 Carbon Dioxide 26 mmol/L (22-29) 08/28/21 09:00 Anion Gap 15.0 (5-19) 08/28/21 09:00 BUN 8 mg/dL (8-23) 08/28/21 09:00 Creatinine 0.4 mg/dL (0.5-0. 9) L 08/28/21 09:00 GFR Calculation Not Reportable 08/28/21 09:00 Glucose 101 mg/dL (65-115 ) 08/28/21 09:00 Calculated Osmolal ity 292 mOsm/kg (285- 295) 08/28/21 09:00 Calcium 9.3 mg/dL (8.5-10 .5) 08/28/21 09:00 Magnesium 1.5 mg/dL (1.7-2. 3) L 08/28/21 15:19 Total Bilirubin 0.3 mg/dL (0.15-1 .2) 08/28/21 09:00 AST 16 U/L (0-32) 08/28/21 09:00 ALT 8 U/L (0-33) 08/28/21 09:00 Alkaline Phosphata se 101 IU/L (35-105) 08/28/21 09:00 Troponin T Baselin e 11 ng/L (0-10) H 08/28/21 09:00 Troponin T 120 Min florentino 11.53 ng/L (0-10) H 08/28/21 11:13 Delta Troponin T 0.53 ABS# (0-10) 08/28/21 11:13 Troponin T Hi Sens 6Hr 14.60 ng/L (0-10) H 08/28/21 15:19 Troponin T Hi Sens 6Hr Delta 3.60 ng/L (0-12) 08/28/21 15:19 NT-Pro-B Natriuret Pep 38 pg/mL (0-450) 08/28/21 15:19 Total Protein 6.6 g/dL (6.6-8.7 ) 08/28/21 09:00 Albumin 3.9 g/dL (3.5-5.2 ) 08/28/21 09:00 Globulin 2.7 g/dL (1.3-4.6 ) 08/28/21 09:00 Triglycerides 84 mg/dL (0-150) 08/28/21 15:19 Cholesterol 156 mg/dL (0-200) 08/28/21 15:19 LDL Cholesterol, C alc 97 mg/dL (50-129) 08/28/21 15:19 HDL Cholesterol 42 mg/dL (60-100) L 08/28/21 15:19 LDL/HDL Ratio 2.31 RATIO (0.00- 3.22) 08/28/21 15:19 Cholesterol/HDL Ra olvin 3.71 mg/dL (0.0-4 .40) 08/28/21 15:19 TSH 2.23 uIU/mL (0.27 -4.20) 08/28/21 15:19 Urine Color Straw (Yellow) 08/28/21 09:09 Urine Appearance Clear (CLEAR) 08/28/21 09:09 Urine pH 8 (5-7) H 08/28/21 09:09 Ur Specific Gravit y 1.005 (1.005-1.0 30) 08/28/21 09:09 Urine Protein Neg (Negative) 08/28/21 09:09 Urine Glucose (UA) Norm (Normal) 08/28/21 09:09 Urine Ketones Negative (Negati ve) 08/28/21 09:09 Urine Blood Neg (Negative) 08/28/21 09:09 Urine Nitrate Negative (Negati ve) 08/28/21 09:09 Urine Bilirubin Neg (Negative) 08/28/21 09:09 Prot Sulfosalicyli c Acd Negative (Negati ve) 08/28/21 09:09 Urine Urobilinogen Norm mg/dL (Negat piotr) 08/28/21 09:09 Ur Leukocyte Jaki ase Negative (Negati ve) 08/28/21 09:09 Imaging^: CTA Chest: Radiologist's impression: 1. No evidence of pulmonary embolus or aortic aneurysm/dissection. 2. Benign calcified granulomas disease. 3. No acute abnormality is seen in the chest. CXR: My impression: No acute pathology noted. Normal cardiac silhouette. Normal lung infiltrate. No pneumothorax. EKG^: EKG 1: My Interpretation: Normal sinus rhythm with diffuse nonspecific ST-T changes. A&P Assessment and plan (1) Atypical chest pain: Patient's chest pain is somewhat atypical. However in view of her multiple risk factors and EKG changes, possibility of coronary ischemia causing this is a strong consideration. This needs to be further evaluated. She was started on Lovenox and aspirin. Which may be continued. She also is on propranolol for tremor which may be continued at this point. Echocardiogram would be helpful to evaluate LV function and rule out any other pathology. If the echocardiogram does not reveal any significant changes, we may consider doing a myocardial perfusion imaging to further evaluate the symptoms. Patient may be kept on all current medications as it is. Status: Acute (2) History of hypertension: The blood pressure is a stage II. We will continue to optimize the antihypertensive medications. Status: Acute (3) History of hyperlipidemia: Patient is on gemfibrozil which may be continued. Lipid profile is not known at this point. Status: Acute (4) History of asthma: Patient apparently was given Decadron in the emergency room. Management as per the primary care. Status: Acute (5) History of benign essential tremor: The propanolol may be continued at this point. Status: Acute Additional A&P Information Based on the clinical progress and the results of the above, further recommendations will be made. Thank you for the opportunity to eval this patient make these recommendations. Consult Attestations Medical Necessity Statement: Patient at least require 1 midnight stay, for further evaluation and management of the condition Coding Level of Care Code Acute Automated Manufacturing Instructor for Chg Fwd History Detailed Exam Detailed Medical Decision Making High Complexity Diagnoses Atypical chest pain R07.89 History of hypertension Z86.79 History of hyperlipidemia Z86.39 History of asthma Z87.09 History of benign essential tremor Z86.69
--- NOTE | 2021-08-28 20:00 | PC.NURSE ---
Around 1944: Dr. Rahman visited patient. Verbal orders received, see MAR.
[2021-08-28] MEDS: nitroglycerin 1 gm/inch oint Pkt 1 INCH TOPICAL (21:18)
[2021-08-28] MEDS: sodium chloride 0.9% 1,000 ML 75 ML IV (21:20)
[2021-08-28] MEDS: acetaminophen 325 mg Tablet 650 MG PO (21:21)
[2021-08-28] MEDS: atorvastatin 40 mg Tablet 20 MG PO (21:21)
[2021-08-28] MEDS: carbidopa-levodopa 25-100mg Tablet 1 EACH PO (21:22)
[2021-08-28] MEDS: AMITRIPTYLINE 10 MG 20 EACH PO (21:39)
[2021-08-29] VITALS (10 sets, daily range): BP systolic 117–138; BP diastolic 68–77; PULSE 64–93; RESP 16–20; TEMP 36.6–37.3; O2SAT 95–99
--- NOTE | 2021-08-29 01:14 | PC.NURSE ---
Around 0015: RT Abdullahi, assessed patients respiratory needs. CPAP applied by RT Abdullahi. Notified Dr. Tao, Hospitalist, of request for PRN breathing treatments from RT. Orders received, see JAN.
[2021-08-29] MEDS: nitroglycerin 1 gm/inch oint Pkt 1 INCH TOPICAL (02:25)
[2021-08-29] MEDS: ondansetron 2 mg/ML SDV 2 mL 4 MG IVP (02:38)
[2021-08-29] MEDS: acetaminophen 325 mg Tablet 650 MG PO ×2 (03:32→08:24)
[2021-08-29 05:10] LABS: Basophils % 0.2 %; Hematocrit 36.8 % (37.0-47.0); Hemoglobin 11.8 g/dL (11.5-15.3); Lymphocytes # 0.7 10^3/uL (0.8-4.8); Lymphocytes % 12.2 %; Mean Corpuscular HGB Conc 32.1 g/dL (30.0-36.0); Mean Corpuscular Hemoglobin 31.5 pg (28.0-34.0); Mean Corpuscular Volume 98.1 fl (81-99); Mean Platelet Volume 9.8 fL (7.4-10.4); Monocytes # 0.5 10^3/uL (0.2-0.9); Monocytes % 8.2 %; Neutrophils % 78.7 %; Nucleated Red Blood Cells % 0 %; Platelet Count 255 10^3/cmm (130-400); Red Blood Count 3.75 10^6/uL (4.1-5.3); Red Cell Distribution Width 12.4 % (12.1-15.1); White Blood Count 5.6 10^3/uL (4.0-10.0)
[2021-08-29] MEDS: enoxaparin 120 mg/0.8 mL Syringe SUBCUT (05:27)
[2021-08-29] MEDS: pantoprazole 40 mg SDV IVP (05:27)
[2021-08-29 05:31] LABS: INR 1.07 (0.8-1.2)
[2021-08-29 05:55] LABS: Alanine Aminotransferase 6 U/L (0-33); Albumin Level 3.8 g/dL (3.5-5.2); Alkaline Phosphatase 90 IU/L (35-105); Anion Gap 16.2 (5-19); Aspartate Amino Transferase 15 U/L (0-32); Blood Urea Nitrogen 12 mg/dL (8-23); Carbon Dioxide 24 mmol/L (22-29); Chloride 105 mmol/L (98-107); Globulin 2.5 g/dL (1.3-4.6); Glucose 134 mg/dL (65-115); Magnesium 1.6 mg/dL (1.7-2.3); NT Pro B Type Natriuretic Pept 63 pg/mL (0-450); Osmolality Calculated 294 mOsm/kg (285-295); Phosphorus 3.3 mg/dL (2.5-4.5); Potassium 4.2 mmol/L (3.5-5.1); Sodium 141 mmol/L (136-145); Total Bilirubin 0.3 mg/dL (0.15-1.2); Total Protein 6.3 g/dL (6.6-8.7)
[2021-08-29] MEDS: aspirin 81 mg EC Tablet PO (08:23)
[2021-08-29] MEDS: hydroCHLOROthiazide 25 mg Tablet 12.5 MG PO (08:23)
[2021-08-29] MEDS: losartan 50 mg Tablet PO (08:24)
[2021-08-29] MEDS: magnesium sulfate premix 2 GM/50 ML PIGGYBACK IV (08:27)
--- NOTE | 2021-08-29 09:07 | PC.NURSE ---
to nuc med for stress test
[2021-08-29] MEDS: regadenoson 0.4 Mg/5 ml Syringe IVP (09:23)
--- NOTE | 2021-08-29 09:35 | PC.CHAP ---
Pastoral Care Encounter/Spiritual Assessment Type of Contact [] Declined sales recruiter visit [] Patient/Family/Request visit [] Outpatient visit [] Follow-up visit [] Physician referral [] Code/Alert [x] Routine visit [] Staff referral [] Actively dying [] Patient sleeping [] Family support [] [x] Out of room [] Palliative care [] [] Receiving care in room [] Pre-surgical visit [] Trauma [] Long length of stay [] ICU visit [x] Other: testing Relational/Emotional Strength [] Patient feels connected with others/family/visitors/staff [] Distress [] Loneliness/isolation [] Abandonment Spirituality of Patient [] Person of Nadira [] Attends Confucianism of their Nadira [] Believes in Prayer [] Reads Bible or Uatsdin materials [] There are Spiritual issues to be addressed Desk Manager Interventions [x] Prayer [] Active listening [] Non-anxious presence [] Spiritual/emotional support [] Crisis/trauma care [] Spiritual counseling [] Bereavement support [] Provided bereavement packet [] Provided Bible/devotional materials [] Provided toy/stuffed animal, coloring book to patient or family member [] Provided Communion [] Anointing/[place] [] Salvation [x] Completed spiritual assessment [] Other: Impact on Illness or Injury [] Angry [] Fearful [] Anxious [] Often cries [] Exhaustion [] Unable to work [] Unable to attend methodist [] Unable to walk/stand [] Unable to read [] Unable to drive [] Unable to eat/drink [] Unable to sleep [] Unable to be with family [] Patient intubated [] Other: Summary Time spent with patient
[2021-08-29] MEDS: propranolol 40 mg Tablet 120 MG PO ×2 (10:50→18:11)
[2021-08-29] MEDS: carvedilol 3.125 mg Tablet PO (10:50)
[2021-08-29] MEDS: sodium chloride 0.9% 1,000 ML 75 ML IV (10:53)
--- NOTE | 2021-08-29 17:06 | NMCV_ITS ---
NM amado perf SPECT r/s* [id number] Martina Miles Age: 75 Gender: F : 1945 Exam Date: 08/29/2021 08:15 Ordering Phys: Armen Cardoso MD Technologist: GREGORY Nevarez Exam Location: [facility] Indications: LEFT SHOULDER PAIN STRESS TEST [facility] IMAGE PROTOCOL Rest/Stress 1 Lexiscan Day Radiopharmaceutical Dose (mCi) Administration Site Administered by Rest: Tc-99m 11.0 IV GREGORY Nevarez Sestamibi Stress:Tc-99m 32.6 IV GREGORY Wallace Sestamibi Rest: 29-Aug-2021 60 Discovery 630 Stress: 29-Aug-2021 30 Discovery 630 0.4mg Lexiscan. Images obtained in supine and prone position. SPECT RESULTS Technical Quality: Excellent Raw Data Analysis: Normal Image Corrections: No attenuation or motion correction applied Summed Stress Score: 1 Summed Rest Score: 0 Summed Difference Score: 1 PERFUSION FINDINGS Small area of slightly decreased tracer uptake was noted in the mid inferior wall region, with some reversibility, in the supine imaging. With the prone imaging, there was no significant reversible defect. FUNCTIONAL RESULTS (calculated via Gated SPECT) Stress Image LV EF (%): 91 Stress EDV (mL):77 TID: 0.93 Stress ESV (mL):7 FUNCTIONAL FINDINGS: Segmental wall motion analysis revealing no gross wall motion normalities. IMPRESSIONS 1. Myocardial readmitted revealing a small area of slightly decreased tracer uptake in the mid inferior wall region with some reversibility, suggestive of ischemia in the distribution of the right coronary artery. However because of the inconsistency with the prone imaging, the reliability of this finding is compromised. 2. Normal LV ejection fraction 91%. 3. LV wall motion analysis revealing no gross wall motion abnormalities. 4. Normal LV volume. No similar previous studies available for comparison Dr Zita Rahman MD [facility] (Electronically Signed) Final Date: 29 August 2021 14:41 S
--- NOTE | 2021-08-29 17:48 | PM.PN ---
Subjective Subjective: Interval history: Patient is feeling okay. Her chest pain is almost subsided. Has not had a recurrence of chest pain since last night. She had a myocardial perfusion imaging today. She was found to have a small area of possible ischemia in the inferior wall. The reversible defect is inconsistent. So the reliability is questionable. Her echocardiogram was unremarkable. No significant wall motion abnormalities were noted. Medications: Medication Review Details: Current Medications Acetaminophen (Acetaminophen 325 Mg Tablet) 650 mg PO Q6H PRN PRN Reason: Mild/Mod Pain Or Temp >/= 101 Last Admin: 08/29/21 08:24 Dose: 650 mg Documented by: Albuterol Sulfate (Albuterol 8 Gm Mdi) 2 puff INHALATION QID PRN PRN Reason: Shortness Of Breath Albuterol/Ipratropium (Ipratropium-Albuterol 3 Ml Neb) 3 ml INHALATION Q4H.RESPIRATORY PRN PRN Reason: BRONCHOSPASM Aminophylline (Aminophylline 25 Mg/Ml Sdv 10 Ml) 25 mg IVP Q2M PRN PRN Reason: see dose instructions Stop: 08/30/21 07:19 Aspirin (Aspirin 81 Mg Ec Tablet) 81 mg PO DAILY [facility] Last Admin: 08/29/21 08:23 Dose: 81 mg Documented by: Atorvastatin Calcium (Atorvastatin 40 Mg Tablet) 20 mg PO BEDTIME [facility] Last Admin: 08/28/21 21:21 Dose: 20 mg Documented by: Carbidopa/Levodopa (Carbidopa-Levodopa 25-100mg Tablet) 1 each PO BEDTIME [facility] Last Admin: 08/28/21 21:22 Dose: 1 each Documented by: Carvedilol (Carvedilol 3.125 Mg Tablet) 3.125 mg PO BID [facility] Last Admin: 08/29/21 10:50 Dose: 3.125 mg Documented by: Enoxaparin Sodium (Enoxaparin 120 Mg/0.8 Ml Syringe) 120 mg SUBCUT Q12H [facility] Last Admin: 08/29/21 05:27 Dose: 120 mg Documented by: Hydrochlorothiazide (Hydrochlorothiazide 25 Mg Tablet) 12.5 mg PO DAILY [facility] Last Admin: 08/29/21 08:23 Dose: 12.5 mg Documented by: Sodium Chloride (Sodium Chloride 0.9%) 1,000 mls @ 75 mls/hr IV .[id number] [facility] Last Admin: 08/29/21 10:53 Dose: 75 mls/hr Documented by: Isosorbide Mononitrate (Isosorbide Mononitrate Er 30 Mg Tablet) 30 mg PO DAILY [facility] Losartan Potassium (Losartan 50 Mg Tablet) 50 mg PO DAILY [facility] Last Admin: 08/29/21 08:24 Dose: 50 mg Documented by: Morphine Sulfate (Morphine 4 Mg/Ml Sdv 1 Ml) 2 mg IVP Q4H PRN PRN Reason: SEVERE PAIN Naloxone HCl (Naloxone 0.4 Mg/Ml Sdv) 0.1 mg IVP Q2M PRN PRN Reason: OPIATERV Nitroglycerin (Nitroglycerin 0.4 Mg Sublingual Tablet) 0.4 mg SUBLINGUAL Q5M PRN PRN Reason: CHEST PAIN Stop: 08/30/21 07:19 Non-Formulary Medication (Amitriptyline) 20 mg PO BEDTIME [facility] Last Admin: 08/28/21 21:39 Dose: 20 mg Documented by: Ondansetron HCl (Ondansetron 2 Mg/Ml Sdv 2 Ml) 4 mg IVP Q8H PRN PRN Reason: vomiting, or N/V if npo Last Admin: 08/29/21 02:38 Dose: 4 mg Documented by: Ondansetron HCl (Ondansetron 2 Mg/Ml Sdv 2 Ml) 4 mg IVP Q2M PRN PRN Reason: NAUSEA Pantoprazole Sodium (Pantoprazole 40 Mg Sdv) 40 mg IVP Q12H [facility] Last Admin: 08/29/21 05:27 Dose: 40 mg Documented by: Propranolol HCl (Propranolol 40 Mg Tablet) 120 mg PO BID [facility] Last Admin: 08/29/21 10:50 Dose: 120 mg Documented by: Vitals/I&O/Wt Last Vital Signs Temp 98 F 08/29/21 03:36 Pulse 64 08/29/21 12:05 Resp 17 08/29/21 12:05 BP 138/68 08/29/21 09:25 Pulse Ox 97 08/29/21 12:05 08/29/21 08/29/21 08/29/21 06:59 14:59 22:59 Intake Total 1410 / 1410 Output Total 350 / 350 1100 / 1100 Balance -350 / -350 310 / 310 Weight last 48 hrs Weight 256 lb Weight 250 lb Weight 260 lb Physical Exam Narrative: EXAM NARRATIVE: GENERAL: The patient is alert and oriented times three. Not in any acute distress. HEENT: No significant pallor, icterus or lymphadenopathy. The pupils are symmetrical. Oral cavity: There are no mucous membrane lesions. NECK: Trachea appears to be central. No masses noted. No JVD or thyromegaly appreciated. No carotid bruit. RESPIRATORY: Chest is symmetrical. No intercostals muscle retraction or any accessory muscle activation. There is no chest wall tenderness. Breath sounds are heard bilaterally. No rales or rhonchi heard. No evidence of any consolidation. BREASTS: Deferred. HEART: The PMI could not be palpated. No palpable precordial events. S1 and S2 are normal. No S3 or S4 heard. No pericardial rub or any click heard. ABDOMEN: No vessel pulsations or distention. No tenderness. No organomegaly appreciated. No abdominal bruit. Bowel sounds are normally heard. : Deferred. RECTAL: Deferred. LYMPHATIC: No lymphadenopathy noted in the neck or groin. EXTREMITIES: No edema or cyanosis. No clubbing. The pulses are symmetrical bilaterally. MUSCULOSKELETAL: No acute joint deformities or swelling SKIN: There are no significant scars or skin rash noted. NEUROPSYCHIATRIC: The patient is alert and oriented x3. Appears to be in a good mood. The higher functions are grossly within normal limits. No tremors or rigidity noted. Data : 08/29/21 04:55 08/29/21 04:55 Other Labs: Laboratory Last Values WBC 5.6 10^3/uL (4.0-10.0) 08/29/21 04:55 RBC 3.75 10^6/uL (4.1-5.3) L 08/29/21 04:55 Hgb 11.8 g/dL (11.5-15.3) 08/29/21 04:55 Hct 36.8 % (37.0-47.0) L 08/29/21 04:55 MCV 98.1 fl (81-99) 08/29/21 04:55 MCH 31.5 pg (28.0-34.0) 08/29/21 04:55 MCHC 32.1 g/dL (30.0-36.0) 08/29/21 04:55 RDW 12.4 % (12.1-15.1) 08/29/21 04:55 Plt Count 255 10^3/cmm (130-400) 08/29/21 04:55 MPV 9.8 fL (7.4-10.4) 08/29/21 04:55 Neut % (Auto) 78.7 % 08/29/21 04:55 Lymph % (Auto) 12.2 % 08/29/21 04:55 [place] % (Auto) 8.2 % 08/29/21 04:55 Eos % (Auto) 0.0 % 08/29/21 04:55 Baso % (Auto) 0.2 % 08/29/21 04:55 Neut # (Auto) 4.40 10^3/uL (1.8-7.7) 08/29/21 04:55 Lymph # (Auto) 0.7 10^3/uL (0.8-4.8) L 08/29/21 04:55 [place] # (Auto) 0.5 10^3/uL (0.2-0.9) 08/29/21 04:55 Eos # (Auto) 0.0 10^3/uL (0.0-0.8) 08/29/21 04:55 Baso # (Auto) 0.0 10^3/uL (0.0-0.1) 08/29/21 04:55 Nucleated RBC % (auto) 0 % 08/29/21 04:55 Nucleated RBCs # 0.0 /100WBC 08/29/21 04:55 PT 14.20 SECONDS (12.1-14.9) 08/29/21 04:55 INR 1.07 (0.8-1.2) 08/29/21 04:55 Sodium 141 mmol/L (136-145) 08/29/21 04:55 Potassium 4.2 mmol/L (3.5-5.1) 08/29/21 04:55 Chloride 105 mmol/L (98-107) 08/29/21 04:55 Carbon Dioxide 24 mmol/L (22-29) 08/29/21 04:55 Anion Gap 16.2 (5-19) 08/29/21 04:55 BUN 12 mg/dL (8-23) 08/29/21 04:55 Creatinine 0.5 mg/dL (0.5-0.9) 08/29/21 04:55 GFR Calculation Not Reportable 08/29/21 04:55 Glucose 134 mg/dL (65-115) H 08/29/21 04:55 Calculated Osmolality 294 mOsm/kg (285-295) 08/29/21 04:55 Calcium 9.0 mg/dL (8.5-10.5) 08/29/21 04:55 Phosphorus 3.3 mg/dL (2.5-4.5) 08/29/21 04:55 Magnesium 1.6 mg/dL (1.7-2.3) L 08/29/21 04:55 Total Bilirubin 0.3 mg/dL (0.15-1.2) 08/29/21 04:55 AST 15 U/L (0-32) 08/29/21 04:55 ALT 6 U/L (0-33) 08/29/21 04:55 Alkaline Phosphatase 90 IU/L (35-105) 08/29/21 04:55 Troponin T Baseline 11 ng/L (0-10) H 08/28/21 09:00 Troponin T 120 Minute 11.53 ng/L (0-10) H 08/28/21 11:13 Delta Troponin T 0.53 ABS# (0-10) 08/28/21 11:13 Troponin T Hi Sens 6Hr 14.60 ng/L (0-10) H 08/28/21 15:19 Troponin T Hi Sens 6Hr Delta 3.60 ng/L (0-12) 08/28/21 15:19 NT-Pro-B Natriuret Pep 63 pg/mL (0-450) 08/29/21 04:55 Total Protein 6.3 g/dL (6.6-8.7) L 08/29/21 04:55 Albumin 3.8 g/dL (3.5-5.2) 08/29/21 04:55 Globulin 2.5 g/dL (1.3-4.6) 08/29/21 04:55 Triglycerides 84 mg/dL (0-150) 08/28/21 15:19 Cholesterol 156 mg/dL (0-200) 08/28/21 15:19 LDL Cholesterol, Calc 97 mg/dL (50-129) 08/28/21 15:19 HDL Cholesterol 42 mg/dL (60-100) L 08/28/21 15:19 LDL/HDL Ratio 2.31 RATIO (0.00-3.22) 08/28/21 15:19 Cholesterol/HDL Ratio 3.71 mg/dL (0.0-4.40) 08/28/21 15:19 TSH 2.23 uIU/mL (0.27-4.20) 08/28/21 15:19 Urine Color Straw (Yellow) 08/28/21 09:09 Urine Appearance Clear (CLEAR) 08/28/21 09:09 Urine pH 8 (5-7) H 08/28/21 09:09 Ur Specific [place] 1.005 (1.005-1.030) 08/28/21 09:09 Urine Protein Neg (Negative) 08/28/21 09:09 Urine Glucose (UA) Norm (Normal) 08/28/21 09:09 Urine Ketones Negative (Negative) 08/28/21 09:09 Urine Blood Neg (Negative) 08/28/21 09:09 Urine Nitrate Negative (Negative) 08/28/21 09:09 Urine Bilirubin Neg (Negative) 08/28/21 09:09 Prot Sulfosalicylic Acd Negative (Negative) 08/28/21 09:09 Urine Urobilinogen Norm mg/dL (Negative) 08/28/21 09:09 Ur Leukocyte Esterase Negative (Negative) 08/28/21 09:09 A&P Assessment and plan (1) Atypical chest pain: Patient's chest pain is somewhat atypical. However in view of her multiple risk factors and EKG changes, possibility of coronary ischemia causing this is a strong consideration. The myocardial perfusion imaging results were discussed with the patient in detail. It is a weakly positive test. For further evaluation of her coronary status, she requires a cardiac catheterization. The option of optimizing medical treatment versus an invasive strategy was discussed. Patient is wanting to try the medications first. If she has recurrence of chest pain, she would consider doing the cardiac catheterization. This seems to be a reasonable up option. The implications were discussed at length with the patient and her son which they understood well. Status: Acute (2) History of hypertension: Currently she is normotensive. May continue the current medications. Status: Acute (3) History of hyperlipidemia: Patient is on gemfibrozil which may be continued. Lipid profile is not known at this point. Status: Acute (4) History of asthma: Patient apparently was given Decadron in the emergency room. Management as per the primary care. Status: Acute (5) History of benign essential tremor: The propanolol may be continued at this point. Status: Acute Additional A&P Information If the patient continues remain stable, she may be discharged home on the current medications. I would discontinue the Nitropaste. She will be started on isosorbide mononitrate 30 mg p.o. daily. She may be continued on all current medications. She needs to be seen at the [facility] in a week by the nurse practitioner. I may see her in the office in 1 month. Attestations Medical Necessity Statement*: Possible discharge home today Coding Level of Care Code Acute Team Leader for Cirilo Fwthaddeus History Detailed Exam Detailed Medical Decision Making Moderate Complexity Diagnoses Atypical chest pain R07.89 History of hypertension Z86.79 History of hyperlipidemia Z86.39 History of asthma Z87.09 History of benign essential tremor Z86.69
--- NOTE | 2021-08-29 18:56 | P.DS_ITS ---
Discharge Providers Date of Admission: 08/28/21 15:52 Date of Discharge: August 29, 2021 Attending Provider at Admission: Armen Cardoso MD Attending Provider at Discharge: Jus Moore Primary Care Provider: Gillian Modi MD Diagnoses at Discharge Discharge Diagnosis (1) Atypical chest pain: Status: Acute (2) History of hypertension: Status: Acute (3) History of hyperlipidemia: Status: Acute (4) History of asthma: Status: Acute (5) History of benign essential tremor: Status: Acute Reason for Visit Reason for Visit: LEFT SHOULDER PAIN Hospital Course Hospital Course Very pleasant 75-year-old lady was placed in observation after presenting with chest pain and upper back pain which started in her back, progressed to anterior chest pain, sharp, lasting a few minutes, intermittent, with left arm heaviness, relieved by nitroglycerin. Noted hypertensive on presentation with blood pressures 190s systolic over 110s diastolic, was treated with nitro drip, without evidence of PE or aortic aneurysm/dissection on CT angiogram chest PE protocol. Troponin series with minimal abnormality, 11-11.5-14.6. EKG with nonspecific T wave inversions diffusely. Was treated for possible unstable angina with aspirin, statin, beta-emma, anticoagulation. She was assessed by cardiology. Consideration was given to alternative causes also like pericarditis, as she did indicate sometimes pain relieved by change of position to more upright, although did not appear to show other suggestive features. Underwent additional assessment by echocardiography with noted normal ejection fraction, 61%, no regional wall motion abnormality, mild LV hypertrophy, grade 1 diastolic dysfunction. Trace TVR. No pericardial effusion. Tremor, but no A. fib noted on telemetry. Additional risk stratification performed by Lexiscan with nuclear scan stress testing with noted small area of slightly decreased tracer uptake in mid inferior wall region with some reversibility suggestive of ischemia in distribution of RCA, inconsistent on prone imaging. She and her son discussed additional options with cardiology with consideration of further more invasive assessment versus more conservative management currently with optimization of medical therapy for cardiovascular risks, she decided at the moment to pursue the latter and follow-up with cardiology in the office, with recommendation by cardiology at discharge for continuation of aspirin, statin (please watch out for increased risk of rhabdomyolysis in combination with gemfibrozil), continue on propranolol for benign essential tremor, addition of Imdur, also provided with prescription for nitroglycerin. Losartan dose for now decreased to 50 mg daily, however, may need to increase further if blood pressure rising again given very elevated blood pressures on presentation. She knows to seek medical attention immediately in case of concerning symptoms. Please assist her with continued control of risk factors of cardiovascular disease, including HTN, HLD. Please assist her with options for weight loss. Physical Exam Narrative: EXAM NARRATIVE: Visited by son. After discussion with cardiology, ambulated again prior to discharge. Const: COMMON NORMALS: no acute distress, patient oriented x3 and alert GENERAL APPEARANCE: cooperative and comfortable NUTRITIONAL APPEARANCE: obese ORIENTATION/CONSCIOUSNESS: Yes awake HENMT: COMMON NORMALS: oropharynx normal Neck/C-Spine: COMMON NORMALS: no JVD Resp: COMMON NORMALS: normal respiratory effort and clear to auscultation bilaterally AUSCULTATION: clear to auscultation bilaterally Cardio: COMMON NORMALS: no JVD, regular rhythm, S1 normal heart sound present, S2 normal heart sound present and No murmurs present (Cardio) RHYTHM: regular rhythm HEART SOUNDS: S1 normal heart sound present and S2 normal heart sound present GI: COMMON NORMALS: Normal to inspection, nondistended, normoactive bowel sounds present, Soft to palpation and non-tender PALPATION: Yes Soft to palpation Extremity: COMMON NORMALS: no joint enlargement and no pedal edema Neuro: COMMON NORMALS: patient oriented x3 and moves all extremities SENSORIUM/ORIENTATION: Yes alert Skin: COMMON NORMALS: no rashes or lesions noted GENERAL SKIN EXAM: no rashes or lesions noted Discharge Data Data Completed and Pending: Completed Studies During Hospitalization Category Date Time Status CT angio chest PE protcl [id number] Urge nt Cat Scan 08/28/21 12:26 Completed Sestamibi Stress Test Request Routi ne Exams 08/28/21 17:06 Draft XR chest 1V mary carmen ble [id number] Stat Exams 08/28/21 09:14 Completed NM amado perf SPECT r/s* [id number] Routin e Nuc Med 08/29/21 17:06 Completed CV. echo complete * [id number] Urgent Ultrasound 08/28/21 17:06 Completed Pending at discharge Category Date Time Status Complete Blood Co unt w/Auto AM LABS Lab 08/30/21 04:00 Ordered Complete Blood Co unt w/Auto AM LABS Lab 08/31/21 04:00 Ordered Comprehensive Met abolic Panel AM LA BS Lab 08/30/21 04:00 Ordered Comprehensive Met abolic Panel AM LA BS Lab 08/31/21 04:00 Ordered Magnesium AM LABS Lab 08/30/21 04:00 Ordered Magnesium AM LABS Lab 08/31/21 04:00 Ordered NT Pro B Type Taniya riuretic Pept QAM Lab 08/30/21 06:00 Ordered NT Pro B Type Taniya riuretic Pept QAM Lab 08/31/21 06:00 Ordered Phosphorus AM LAB S Lab 08/30/21 04:00 Ordered Phosphorus AM LAB S Lab 08/31/21 04:00 Ordered Prothrombin Time INR AM LABS Lab 08/30/21 04:00 Ordered Prothrombin Time INR AM LABS Lab 08/31/21 04:00 Ordered Labs from last 24 hours 08/29/21 08/29/21 08/29/21 04:55 04:55 04:55 WBC 5.6 RBC 3.75 L Hgb 11.8 Hct 36.8 L MCV 98.1 MCH 31.5 MCHC 32.1 RDW 12.4 Plt Count 255 MPV 9.8 Neut % (Auto) 78.7 Lymph % (Auto) 12.2 [place] % (Auto) 8.2 Eos % (Auto) 0.0 Baso % (Auto) 0.2 Neut # (Auto) 4.40 Lymph # (Auto) 0.7 L [place] # (Auto) 0.5 Eos # (Auto) 0.0 Baso # (Auto) 0.0 Nucleated RBC % (a uto) 0 Nucleated RBCs # 0.0 PT 14.20 INR 1.07 Sodium 141 Potassium 4.2 Chloride 105 Carbon Dioxide 24 Anion Gap 16.2 BUN 12 Creatinine 0.5 GFR Calculation Not Reportable Glucose 134 H Calculated Osmolal ity 294 Calcium 9.0 Phosphorus 3.3 Magnesium 1.6 L Total Bilirubin 0.3 AST 15 ALT 6 Alkaline Phosphata se 90 NT-Pro-B Natriuret Pep 63 Total Protein 6.3 L Albumin 3.8 Globulin 2.5 Vitals: Last Vital Signs Temp 99.1 F 08/29/21 16:00 Pulse 74 08/29/21 16:00 Resp 20 H 08/29/21 16:00 BP 117/77 08/29/21 18:17 Pulse Ox 97 08/29/21 12:05 Discharge Plan Discharge Patient Disposition: Home Condition: Stable Prescriptions: New methocarbamol 500 mg tablet 500 mg PO Q8H PRN (Reason: pain) Qty: 14 RF: 0 losartan 50 mg Tablet 50 mg PO DAILY Qty: 90 RF: 0 atorvastatin 40 mg Tablet 20 mg PO BEDTIME Qty: 90 RF: 0 isosorbide mononitrate 30 mg Tablet Extended Release 24 Hr 30 mg PO DAILY Qty: 90 RF: 0 nitroglycerin 0.4 mg Tablet, Sublingual 0.4 mg sublingual Q5M PRN (Reason: Chest Pain) Qty: 20 RF: 0 aspirin 81 mg Tablet,Delayed Release (Dr/Ec) 81 mg PO DAILY Qty: 90 RF: 0 Continued calcium 500 mg Tablet 500 mg PO DAILY RF: 0 propranolol 60 mg tablet 120 mg PO BID RF: 0 omeprazole 40 mg Capsule,Delayed Release(Dr/Ec) 40 mg PO DAILY RF: 0 amitriptyline 10 mg tablet 20 mg PO BEDTIME RF: 0 gemfibrozil 600 mg tablet 600 mg PO BID RF: 0 albuterol sulfate 90 mcg/actuation HFA aerosol inhaler 2 puff INHALATION QID PRN (Reason: Shortness Of Breath) RF: 0 carbidopa-levodopa 25-100 mg tablet 1 tab PO BEDTIME RF: 0 hydrochlorothiazide 12.5 mg Tablet 12.5 mg PO DAILY RF: 0 Discontinued irbesartan 150 mg tablet 150 mg PO DAILY RF: 0 Discharge Orders: Discharge Order (Routine); Ordered 08/29/21 Ordered By: Jus Moore Referrals: Gillian Modi MD [Primary Care Provider] - 4-7 days (Please call for an follow-up appointment in 4 to 7 days. ) Zita Rahman MD [Physician] - 2 weeks ([facility] will contact you to schedule an follow-up appointment with Dr. Rahman in 2 weeks. If you haven't heard from them by Sunday afternoon. Please call ) Milagro Forte FNP [Nurse Practitioner] - 1 week ([facility] will conta ct you to schedule an follow-up appointment in 1 week. If you haven't heard from them by Sunday afternoon. Please call ) Discharge Diet: Advance as tolerated and Cardiac Discharge Activity: Increase activity as tolerated Patient Instructions: Nitroglycerin (By mouth), Aspirin (By mouth), Methocarbamol (By mouth), Isosorbide Mononitrate (By mouth) (Imdur, Imdur ER, Ismo), Atorvastatin (By mouth), Chest Pain Stoplight Activity Restrictions/Additional Instructions: Please follow-up with the heart doctor in office. In case you experience any chest pain or pressure not responding to nitroglycerin, feeling lightheaded, faint, and trouble breathing, spiking fever or any other concerning symptoms, seek medical attention without delay. As per heart doctors recommendation continue aspirin, continue propranolol, continue cholesterol medication, although please be aware that atorvastatin together with gemfibrozil sometimes may increase the risk of muscle injury (rhabdomyolysis), and if you experience diffuse muscle pain, weakness, please hold any further atorvastatin and gemfibrozil and let your doctor know right away. You are also started on Imdur to help reduce chance of recurrence of symptoms. Because Imdur can decrease your blood pressure your losartan dose is decreased to 50 mg daily. Please measure blood pressure 3 times daily at home, write down values to bring to your appointments. If blood pressure is rising at home, gradually increase dose of losartan to 100 mg, and if blood pressure still r ising above 150/90, resume 150 mg as previously. Contact your doctor's office in case you have to increase blood pressure medication doses. Long-term, try to target blood pressure is 120/80. Please discuss with your primary doctor to help you manage risk factors of cardiovascular disease to reduce chance of progression of coronary artery disease, risk of heart attack, and other peripheral chill disease including risk of stroke including high blood pressure, elevated cholesterol, discussed ways to help you lose weight. Follow-up with your primary care doctor in the next 2 to 3 days. Apply warm pack, do frequent stretching exercises of your left shoulder and neck. Return immediately to the ER if you have worsening pain, weakness or numbness in your arm, or any other sudden changes. You were given supplementation for low magnesium. Consider including magnesium supplementation and have your primary doctor recheck your magnesium level. Discharge Attestations Time Spent in Discharge Care*: greater than 30 min Quality Metrics Clinical Quality Measures During this hospital stay, did patient experience: None Coding Level of Care Code Acute g [facility] note Diagnoses Atypical chest pain R07.89 History of hypertension Z86.79 History of hyperlipidemia Z86.39 History of asthma Z87.09 History of benign essential tremor Z86.69
--- NOTE | 2021-08-29 19:00 | PC.NURSE ---
Discharge to home w/ son Instructed pt on her follow-up appointments. educated pt on her new meds actions, dosing and timing. pt teaches back and verbalizes understanding. discharge packet provided to pt. ushered pt via wheelchair.
== END 2021-08-29 19:00 | disposition home or self-care (01) ==
LOC: ER 14:47 → CSU 16:15
PROVIDERS: Admitting Provider Family Medicine; Emergency Provider Family Medicine; PCP Family Medicine; Visit Provider Internal Medicine
DX: I20.0 Unstable angina (principal); I16.1 Hypertensive emergency; E78.5 Hyperlipidemia, unspecified; I10 Essential (primary) hypertension; R07.89 Other chest pain; J45.909 Unspecified asthma, uncomplicated; G25.81 Restless legs syndrome; G25.0 Essential tremor; E66.9 Obesity, unspecified; Z68.41 Body mass index [BMI] 40.0-44.9, adult; Z79.82 Long term (current) use of aspirin
CPT/HCPCS: 36415; 71045; 71275; 78452; 80053; 80061; 81003; 83735; 83880; 84100; 84443; 84484; 85025; 85610; 93005; 93017; 93306; 94660; 94664; 96372; 96374; 96375; 99285; A9500; C9113; G0378; J1100; J1650; J1885; J2360; J2405; J2785; J3010; J3475; J7030; Q9967